=== PATIENT | female | born 1970 | race Caucasian/White ===

== ENCOUNTER 2017-12-02 19:17 | Emergency (ER) | END 2017-12-02 23:36 | disposition home or self-care (01) ==

== ENCOUNTER 2018-09-05 18:56 | Emergency (ER) | payer OTHER ==
[~2018-09-05] VITALS: Ht 152.4 cm; Wt 108.0 kg
[~2018-09-05 18:56] MED LIST: CYCL10TA7 PO; HYDR-4011 PO; IBUP-1542 PO
[2018-09-05 19:18] VITALS: BP 180/89; PULSE 95; RESP 20; Ht 152.4 cm; Wt 108.0 kg
[2018-09-05] MEDS ORDERED: KETOROLAC 30 MG INJ IM STA (20:23)
--- NOTE | 2018-09-05 20:23 | ERD ---
ER Documentation Chief Complaint Chief Complaint RIGHT UPPER TOOTH PROBLEM WITH FACIAL PAIN WELL, + SWELLING HPI This is a 47-year-old female who presents to emerge department with complaints of right upper tooth pain patient stated that for about a day. The pain radiates to her right face. LMP: Stated it was last week. Stated that she has tubal ligation. A0. Denies headache, head injury, loss of consciousness, dizziness, neck pain, neck stiffness, throat pain, difficulty swallowing, difficulty breathing lying flat, shoulder pain, chest pain, back pain, abdominal pain, nausea, vomiting, constipation, diarrhea, urinary symptoms, or possibility being , loss of bowel and bladder control, trauma, injury, falls, difficulty walking due to pain, numbness or tingling sensation, calf pain, recent travel, recent major surgery in the last 3 weeks, calf pain, recent long travel, recent exposure to any illness, recent antibiotic use in the last 3 months, fever, chills, seizures. Past medical history: Diabetes. Surgical history: Social: Denies smoking, use of alcoholic beverages, use of illegal drugs. ROS All systems reviewed and are negative except as per history of present illness. Medications Home Meds Active Scripts Penicillin V Potassium* (Penicillin V K*) 500 Mg Tab, 500 MG PO QID for 10 Days, TAB Prov:GINA FERRERA 09/05/18 Ibuprofen* (Motrin*) 800 Mg Tab, 800 MG PO Q6H PRN for PAIN AND OR ELEVATED TEMP, #30 TAB Prov:MAISHAJOSESOFÍA Espinal 09/05/18 Tramadol HCl (Tramadol HCl) 50 Mg Tablet, 50 MG PO Q4 PRN for SEVERE PAIN LEVEL 7-10, #6 TAB Prov:MAISHAJOSESOFÍA Espinal 09/05/18 Ibuprofen* (Motrin*) 600 Mg Tab, 600 MG PO Q6H PRN for PAIN AND OR ELEVATED TEMP, #30 TAB Prov:BASIL GARCIA NP 12/02/17 Cyclobenzaprine Hcl* (Cyclobenzaprine Hcl*) 10 Mg Tablet, 10 MG PO TID, #15 TAB Prov:BASIL GARCIA NP 18 Hydrocodone/Acetaminophen ([place] 5-325 Tablet) 1 Each Tablet, 1 TAB PO Q6H PRN for SEVERE PAIN LEVEL 7-10, #15 TAB Prov:BASIL GARCIA NE 12/02/17 Reported Medications [none] Unknown Strength No Conflict Check 12/02/17 Allergies Allergies: Coded Allergies: No Known Drug Allergies (Verified Allergy, Unknown, 12/02/17) PMhx/Soc History of Surgery: Yes (4 C-Sections) Anesthesia Reaction: No Hx Neurological Disorder: No Hx Respiratory Disorders: Yes (Asthma) Hx Cardiac Disorders: No Hx Psychiatric Problems: No Hx Miscellaneous Medical Probl: Yes (DM) Hx Alcohol Use: No Hx Substance Use: No Hx Tobacco Use: No Smoking Status: Never smoker Physical Exam Vitals Vital Signs Date Temp Pulse Resp B/P (MAP) Pulse Ox O2 O2 Flow FiO2 Time Delivery Rate 09/05/18 98.3 95 20 180/89 99 19:18 (119) Physical Exam Const: No acute distress Head: Atraumatic Eyes: Normal Conjunctiva ENT: Normal External Ears, Nose and Mouth. Throat: Right upper canine/gum is swollen and tenderness. Right upper canine has a tooth decay. Uvula is in midline and nondisplaced. Tonsils are +1 bilaterally without redness and without exudates. Tolerating secretions. Patent airway. Speaks full and clear sentences. No lip swelling. No facial swelling. No signs of angioedema. Neck: Full range of motion. No meningismus. No nuchal rigidity. No signs of meningeal irritation. Resp: Clear to auscultation bilaterally Cardio: Regular rate and rhythm, no murmurs Abd: Soft, non tender, non distended. Normal bowel sounds Skin: No petechiae or rashes Back: No midline or flank tenderness Ext: No cyanosis, or edema Neur: Awake and alert. No neurological deficits. Psych: Normal Mood and Affect Results 24 hrs Current Medications Medications Dose Sig/Cedric Start Time Status Last (Trade) Ordered Route PRN Stop Time Admin Dose Reason Admin Ketorolac 30 mg ONCE STAT 09/05/18 DC 09/05/18 Tromethamine IM 20:23 20:50 (Toradol) 09/05/18 20:25 1 tab ONCE ONCE 09/05/18 DC 09/05/18 Acetaminophen PO 20:30 20:49 / 09/05/18 20:31 Hydrocodone Bitart ([place] ()) Procedures/MDM Diagnostic tests: Clinical exam. Treatment: Toradol IM. [place] p.o. Re-evaluation: Denies pain. Differential diagnosis I have low suspicion for angioedema, facial abscess, peritonsillar abscess, meningitis, mastoiditis. Final diagnosis: Tooth decay. Tooth abscess. Prescription: Tramadol. Motrin. Penicillin V. Follow-up with PCP in the next 24-48 hours. Follow-up with your dentist in the next 24-48 hours. Stated that she has an appointment with her dentist tomorrow. Come back here in the emergency department for any new symptoms or any worsening symptoms. All questions and concerns were answered. Patient and family members verbalized understanding and agreed with plan of care. Hemodynamically stable on discharge. Clinical exam. Departure Diagnosis: Primary Impression: Tooth disease Additional Impression: Dental abscess Condition: Stable Additional Instructions: Follow-up with PCP in the next 24-48 hours. Follow-up with your dentist in the next 24-48 hours. Stated that she has an appointment with her dentist tomorrow. Come back here in the emergency department for any new symptoms or any worsening symptoms. GINA FERRERA Sep 05, 2018 20:23
[2018-09-05] MEDS ORDERED: HYDROCODONE/APAP (10/325) TAB PO ONE (20:30)
[2018-09-05] MEDS ORDERED: IBUP800T48 PO (20:41)
[2018-09-05] MEDS ORDERED: TRAM50TA2 PO (20:41)
[2018-09-05] MEDS ORDERED: PENI500T PO (20:42)
== END 2018-09-05 21:21 | disposition home or self-care (01) ==
LOC: FTE 18:56
DX: K04.7 Periapical abscess without sinus (principal); K08.9 Disorder of teeth and supporting structures, unspecified; J45.909 Unspecified asthma, uncomplicated; E11.9 Type 2 diabetes mellitus without complications
CPT/HCPCS: 96372; J1885; Z7502; Z7610